=== PATIENT | female | born 1940 | race Caucasian/White ===

== ENCOUNTER → 2016-04-13 | Outpatient (CLI) | payer OTHER ==
[~2016-04-13] MED LIST: ACET-1311 PO; ASPI81TA28 PO; CALC500C70 PO; CLR10 PO; FLUO0.1S2 OPR; GLC/500 PO; IBUP-1459 PO; LEVO25TA5 PO; LISI40TA PO; MOME50SP5; MULT-188 PO; MULT-506 PO; MXZC25 PO; OMEG10007 PO; PRLSR20 PO; Refresh Eye Drops; SENNTAB23 PO; SIMV40TA2 PO; VALA500T60 PO
[2016-04-13 13:33] LABS: ALT/SGPT 30 U/L (12-78); AST/SGOT 18 U/L (15-37); BLOOD UREA NITROGEN 25 mg/dl (7-18); CALCIUM 9.3 mg/dl (8.5-10.1); CARBON DIOXIDE 28 mmol/L (21-32); CHLORIDE 103 mmol/L (98-107); GLUCOSE 115 mg/dl (70-99); POTASSIUM 4.3 mmol/L (3.5-5.1); SODIUM 140 mmol/L (136-145)
[2016-04-13 13:39] LABS: ESTIMATED AVERAGE GLUCOSE 123 mg/dl; HA1C FLAG Normal (Normal)
[2016-04-13 13:46] LABS: ALB/GLOB RATIO 1.4 (0.9-2); ALKALINE PHOSPHATASE 61 U/L (45-117); CHOLESTEROL 151 mg/dl (0-200); CHOLESTEROL/HDL RATIO 2.6; HDL CHOLESTEROL 59 mg/dl; LDL CHOLESTEROL CALCULATED 69 mg/dl; THYROID STIMULATING HORMONE 0.705 uIu/ml (0.300-4.500); TRIGLYCERIDES 116 mg/dl (0-150); VERY LOW DENSITY LIPOPROT CALC 23 mg/dl
--- NOTE | 2016-04-21 13:25 | CODING QUERY MEDICAL NECESSITY ---
SUPPORTING DIAGNOSIS NEEDED A supporting diagnosis is required for the test/procedure performed on this patient in order for us to be reimbursed by the patient's insurance. Please provide a supporting diagnosis for the following test/procedure listed below next to the test name along with your signature. *If there is no additional diagnosis for this patient that would support the following test/procedure please document that below next to the test/procedure. Test(s)/Procedure(s) that require a supporting diagnosis: * GLYCATED HEMOGLOBIN DIAGNOSIS: * DOS: 04/13/16 Provider Signature: Date: Thank you Eliana Carter Health Information Management Once completed, please kindly fax back to [phone] For questions please call [phone]
== END | disposition home or self-care (01) ==
LOC: C.LABBC 09:43
PROVIDERS: ATTEND Family Medicine
DX: I10 Essential (primary) hypertension (principal); E89.0 Postprocedural hypothyroidism; E78.00 Pure hypercholesterolemia, unspecified; R73.03 Prediabetes

== ENCOUNTER → 2016-05-18 | Outpatient (CLI) | payer OTHER ==
--- NOTE | 2016-05-18 13:45 | DIAGNOSTIC IMAGING REPORT ---
THYROID ULTRASOUND HISTORY: E01.0 Thyroid [id number] COMPARISON: Thyroid ultrasound 04/28/2015. FINDINGS: Right lobe: 7.5 x 4.2 x 4.3 cm. Diffusely heterogeneous. No definite nodules. Left lobe: 6.7 x 3.6 x 4.1 cm. Diffusely heterogeneous. No definite nodules. Isthmus: 1 cm thickness. Diffusely heterogeneous. No definite nodules. IMPRESSION: No significant change in the enlarged and diffusely heterogeneous thyroid gland. No definite nodules. Electronically signed by: Rock Bertrand M.D. 05/18/2016 1:44 PM Dictated Date/Time: 05/18/2016 1:42 PM
== END | disposition home or self-care (01) ==
LOC: C.ULTRBC 12:28
PROVIDERS: ATTEND Nurse Practitioner Adult Health
DX: E01.0 Iodine-deficiency related diffuse (endemic) goiter (principal)

== ENCOUNTER → 2016-09-17 | Outpatient (CLI) | payer OTHER ==
--- NOTE | 2016-09-20 12:30 | MAMMOGRAPHY REPORT ---
BILATERAL DIGITAL SCREENING MAMMOGRAM TOMOSYNTHESIS WITH CAD: 09/17/2016 CLINICAL HISTORY: Routine screening. Patient has no complaints. TECHNIQUE: Breast tomosynthesis in addition to standard 2D mammography was performed. Current study was also evaluated with a Computer Aided Detection (CAD) system. COMPARISON: Comparison is made to exams dated: 09/17/2015 mammogram, 09/13/2014 mammogram, 09/12/2013 ma mmogram, 09/01/2011 mammogram, 08/28/2010 mammogram, and 03/02/2010 mammogram - [facility] nter. BREAST COMPOSITION: There are scattered areas of fibroglandular density in both breasts. FINDINGS: No suspicious masses, calcifications, or areas of architectural distortion are noted in ei ther breast. There has been no significant interval change compared to prior exams. IMPRESSION: ACR BI-RADS CATEGORY 2: BENIGN There is no mammographic evidence of malignancy. A 1 year screening mammogram is recommended. The pa tient will receive written notification of the results. Approximately 10% of breast cancers are not detected with mammography. A negative mammographic report should not delay biopsy if a clinically suggestive mass is present. Rita Muhammad M.D. ah/:09/17/2016 13:47:56 Scaffold Builder: Brenda TRUONG(Cristal)(Tan), [facility] letter sent: Normal 1/2 BI-RADS Code: ACR BI-RADS Category 2: Benign
== END | disposition home or self-care (01) ==
LOC: C.MAMM 10:44
PROVIDERS: ATTEND Family Medicine
DX: Z12.31 Encounter for screening mammogram for malignant neoplasm of breast (principal)

== ENCOUNTER → 2016-10-23 | Outpatient (CLI) | payer OTHER | END | disposition home or self-care (01) | LOC: C.LABBC 12:05 | PROVIDERS: ATTEND Nurse Practitioner Family | DX: R19.7 Diarrhea, unspecified (principal) ==

== ENCOUNTER → 2016-12-02 | Outpatient (CLI) | payer OTHER | END | disposition home or self-care (01) | LOC: C.LABBC 10:56 | PROVIDERS: ATTEND Physician Assistant | DX: K21.9 Gastro-esophageal reflux disease without esophagitis (principal); R19.7 Diarrhea, unspecified ==

== ENCOUNTER → 2016-12-08 | Outpatient (CLI) | payer OTHER ==
[2016-12-08 13:21] LABS: HEMATOCRIT 41.7 % (37-47); MEAN CELL VOLUME 95.2 fL (80-100); MEAN CORPUSCULAR HEMOGLOBIN 32.6 pg (25-34); MEAN CORPUSCULAR HGB CONC 34.3 g/dl (32-36); PLATELET COUNT 235 K/uL (130-400); RED BLOOD COUNT 4.38 M/uL (4.2-5.4); WHITE BLOOD COUNT 7.28 K/uL (4.8-10.8)
[2016-12-08 13:45] LABS: ESTIMATED AVERAGE GLUCOSE 131 mg/dl; HA1C FLAG Normal (Normal)
[2016-12-08 14:09] LABS: ALT/SGPT 93 U/L (12-78); AST/SGOT 73 U/L (15-37); BLOOD UREA NITROGEN 24 mg/dl (7-18); BUN/CREATININE RATIO 22.7 (10-20); CALCIUM 9.4 mg/dl (8.5-10.1); CARBON DIOXIDE 26 mmol/L (21-32); CHLORIDE 103 mmol/L (98-107); CHOLESTEROL 122 mg/dl (0-200); CREATININE 1.04 mg/dl (0.60-1.20); GLUCOSE 115 mg/dl (70-99); POTASSIUM 3.8 mmol/L (3.5-5.1); SODIUM 138 mmol/L (136-145)
[2016-12-08 14:19] LABS: ALB/GLOB RATIO 1.3 (0.9-2); ALKALINE PHOSPHATASE 50 U/L (45-117); BASO ABS # 0.13 K/uL (0-0.2); BASOPHIL % 1.8 %; CHOLESTEROL/HDL RATIO 1.9; COMPLETE YES; EOSINOPHIL % 3.5 %; HDL CHOLESTEROL 64 mg/dl; LDL CHOLESTEROL CALCULATED 41 mg/dl; LYMPH ABS # 1.98 K/uL (1.2-3.4); LYMPHOCYTE % 27.2 %; NEUTROPHILS % 35.1 %; THYROID STIMULATING HORMONE 0.794 uIu/ml (0.300-4.500); TRIGLYCERIDES 84 mg/dl (0-150); VARIANT LYM ABS # 1.91 K/uL; VARIANT LYMPHOCYTE % 26.3 %; VERY LOW DENSITY LIPOPROT CALC 17 mg/dl
[2016-12-08 14:47] LABS: SMUDGE CELLS PRESENT
== END | disposition home or self-care (01) ==
LOC: C.LABBC 10:04
PROVIDERS: ATTEND Nurse Practitioner Adult Health
DX: R73.03 Prediabetes (principal); E78.00 Pure hypercholesterolemia, unspecified; E89.0 Postprocedural hypothyroidism

== ENCOUNTER → 2016-12-29 | Outpatient (CLI) | payer OTHER ==
[2016-12-29 13:51] LABS: ALT/SGPT 38 U/L (12-78); AST/SGOT 19 U/L (15-37); BLOOD UREA NITROGEN 27 mg/dl (7-18); BUN/CREATININE RATIO 28.3 (10-20); CALCIUM 9.2 mg/dl (8.5-10.1); CARBON DIOXIDE 28 mmol/L (21-32); CHLORIDE 104 mmol/L (98-107); CREATININE 0.96 mg/dl (0.60-1.20); GLUCOSE 106 mg/dl (70-99); POTASSIUM 3.9 mmol/L (3.5-5.1); SODIUM 140 mmol/L (136-145)
[2016-12-29 13:55] LABS: ALB/GLOB RATIO 1.2 (0.9-2); ALKALINE PHOSPHATASE 46 U/L (45-117)
== END | disposition home or self-care (01) ==
LOC: C.LABBC 09:15
PROVIDERS: ATTEND Physician Assistant
DX: R74.8 Abnormal levels of other serum enzymes (principal)

== ENCOUNTER → 2017-05-23 | Outpatient (CLI) | payer OTHER ==
--- NOTE | 2017-05-23 10:47 | DIAGNOSTIC IMAGING REPORT ---
THYROID ULTRASOUND HISTORY: Thyroid enlargement. COMPARISON: Thyroid ultrasound 05/18/2016. FINDINGS: Right lobe: 7.5 x 4.2 x 4.3 cm. The gland is diffusely heterogeneous. No definite nodules. Left lobe: 6.7 x 3.6 x 4.1 cm. The gland is diffusely heterogeneous. No definite nodules. Isthmus: 1.3 cm in thickness. No nodules. IMPRESSION: No significant change in the enlarged and diffusely heterogeneous thyroid gland. No definite nodules. Electronically signed by: Rock Bertrand M.D. 05/23/2017 10:46 AM Dictated Date/Time: 05/23/2017 10:44 AM
== END | disposition home or self-care (01) ==
LOC: C.ULTR 09:47
PROVIDERS: ATTEND Family Medicine
DX: E04.9 Nontoxic goiter, unspecified (principal)

== ENCOUNTER → 2017-06-13 | Outpatient (CLI) | payer OTHER ==
[2017-06-13 13:42] LABS: HEMOGLOBIN A1C 5.9 % (4.5-5.6)
[2017-06-13 14:53] LABS: ALBUMIN 3.7 gm/dl (3.4-5.0); ALT/SGPT 34 U/L (12-78); BLOOD UREA NITROGEN 22 mg/dl (7-18); CALCIUM 9.3 mg/dl (8.5-10.1); CARBON DIOXIDE 28 mmol/L (21-32); CREATININE 1.12 mg/dl (0.60-1.20); GLUCOSE 111 mg/dl (70-99); POTASSIUM 3.7 mmol/L (3.5-5.1); SODIUM 139 mmol/L (136-145)
[2017-06-13 15:05] LABS: AST/SGOT 20 U/L (15-37); CHOLESTEROL 144 mg/dl (0-200); LDL CHOLESTEROL CALCULATED 57 mg/dl
[2017-06-13 15:07] LABS: ALKALINE PHOSPHATASE 51 U/L (45-117)
== END | disposition home or self-care (01) ==
LOC: C.LABBC 09:49
PROVIDERS: ATTEND Family Medicine
DX: I10 Essential (primary) hypertension (principal); E89.0 Postprocedural hypothyroidism; E78.00 Pure hypercholesterolemia, unspecified; R73.03 Prediabetes

== ENCOUNTER → 2017-09-19 | Outpatient (CLI) | payer OTHER ==
--- NOTE | 2017-09-20 14:44 | MAMMOGRAPHY REPORT ---
BILATERAL DIGITAL SCREENING MAMMOGRAM TOMOSYNTHESIS WITH CAD: 09/19/2017 CLINICAL HISTORY: Routine screening. Patient has no complaints. TECHNIQUE: The study was acquired using full field digital technology and interpreted from soft copy. Breast tomosynthesis in addition to standard 2D mammography was performed. Current study was also ev aluated with a Computer Aided Detection (CAD) system. COMPARISON: Comparison is made to exams dated: 09/17/2016 mammogram, 09/17/2015 mammogram, 09/13/2014 migdalia mogram, 09/12/2013 mammogram, 09/08/2012 mammogram, and 09/01/2011 mammogram - [facility] ter. BREAST COMPOSITION: There are scattered areas of fibroglandular density in both breasts. FINDINGS: The parenchymal pattern is unchanged. There are benign calcifications in both breasts. No developing mass, architectural distortion or cluster of suspicious microcalcifications is seen in either breast . IMPRESSION: ACR BI-RADS CATEGORY 2: BENIGN There is no mammographic evidence of malignancy. A 1 year screening mammogram is recommended.( 019) The patient will receive written notification of the results. Some breast cancers are not detected with mammography. A negative mammographic report should not solomon y biopsy if a clinically suggestive mass is present. Meeta Rasmussen M.D. ay/:09/19/2017 17:42:23 Retail Sales Associate Bilingual: RT Vincent(R)(M), [facility] letter sent: Normal 1/2 BI-RADS Code: ACR BI-RADS Category 2: Benign
== END | disposition home or self-care (01) ==
LOC: C.MAMM 11:04
PROVIDERS: ATTEND Family Medicine
DX: Z12.31 Encounter for screening mammogram for malignant neoplasm of breast (principal)

== ENCOUNTER 2018-06-30 11:29 | Inpatient (IN) ==
--- NOTE | 2018-05-30 14:52 | PAT Medication Instructions ---
Medication Instructions Date of Service May 30, 2018 Home Medications Artificial Tears (PF) 1 drp OPHTHALMIC (EYE) HS PRN Ocuvite 1 cap PO QPM Probiotic 1 cap PO QAM aspirin 81 mg PO HS calcium carbonate [Tums] 200 mg PO UD PRN calcium carbonate-vitamin D3 1 tab PO DAILY fluorometholone acetate 1 drp OPR QAM fluticasone propionate 1 spray INTRANASAL DAILY levothyroxine 25 mcg PO UD lisinopril 40 mg PO QAM metformin 500 mg PO BID multivitamin 1 tab PO DAILY omega 8-loq-jro-fish oil [Fish Oil] 1 cap PO BID simvastatin 40 mg PO HS triamterene-hydrochlorothiazid 1 cap PO QAM valacyclovir 500 mg PO QAM meloxicam 15 mg PO QAM ASK your surgeon for instructions meloxicam 15 mg PO QAM STOP taking 2 weeks before surgery (or as soon as possible if surgery is within 2 weeks) Ocuvite 1 cap PO QPM omega 0-qdz-erp-fish oil [Fish Oil] 1 cap PO BID DO NOT take the morning of surgery Probiotic 1 cap PO QAM calcium carbonate [Tums] 200 mg PO UD PRN calcium carbonate-vitamin D3 1 tab PO DAILY lisinopril 40 mg PO QAM metformin 500 mg PO BID multivitamin 1 tab PO DAILY triamterene-hydrochlorothiazid 1 cap PO QAM Take morning of surgery With a small sip of water, OTHERWISE NOTHING TO EAT OR DRINK AFTER MIDNIGHT: fluorometholone acetate 1 drp OPR QAM fluticasone propionate 1 spray INTRANASAL DAILY levothyroxine 25 mcg PO UD (M, W, F) valacyclovir 500 mg PO QAM Take evening before surgery Artificial Tears (PF) 1 drp OPHTHALMIC (EYE) HS PRN (if needed) aspirin 81 mg PO HS calcium carbonate [Tums] 200 mg PO UD PRN (if needed) metformin 500 mg PO BID simvastatin 40 mg PO HS Other Notes If you have any questions please call us at [phone] or [phone] or [phone] or [phone]
--- NOTE | 2018-05-31 09:51 | Anesthesiology Consultation ---
Date of Service May 31, 2018 Assessment & Plan (1) Encounter for pre-operative examination: -Patient has known history of thyroid goiter causing mediastinal widening with mild mass effect along the proximal trachea. This has caused difficult intubations in the past, but she has always been successfully intubated in the past using glidescope. Discussed with Dr. Cerda, who feels that patient is ok to proceed given that imaging has not changed. Chart Review Chart Review: Acceptable Risk for Surgery and Patient seen in Pre Admission Testing Consults Requested none Teaching & Discussion Pre-Anesthesia Teaching/Discussion Notes: Instructed NPO after midnight before surgery, except medications with 15 cc of water. Medication instructions provided according to the PAT guidelines. History Surgery Operation Date: 06/30/18 13:00 Proposed Procedures p Right Anterior Total Hip Replacement - Salo Cartagena DO Height/Weight Height: 5 ft 1 in Weight: 90.4 kg Allergies Allergy/AdvReac Type Severity Reaction Status Date / Time No Known Allergies Allergy Verified 05/24/18 10:22 Medications Home Medications Medication Instructions Recorded Confirmed Last Taken Artificial Tears (PF) 1 drp OPHTHALMIC (EYE) HS PRN 11/24/17 05/24/18 12/07/17 Ocuvite 1 cap PO QPM 11/24/17 05/24/18 12/07/17 Probiotic 1 cap PO QAM 11/24/17 05/24/18 12/07/17 aspirin 81 mg PO HS 11/24/17 05/24/18 12/07/17 calcium carbonate [Tums] 200 mg PO UD PRN 11/24/17 05/24/18 12/07/17 calcium carbonate-vitamin D3 1 tab PO DAILY 11/24/17 05/24/18 12/07/17 [Calcium 600 + D(3)] fluorometholone acetate 1 drp OPR QAM 11/24/17 05/24/18 12/07/17 fluticasone propionate 1 spray INTRANASAL DAILY 11/24/17 05/24/18 12/07/17 levothyroxine 25 mcg PO UD 11/24/17 05/24/18 12/07/17 lisinopril 40 mg PO QAM 11/24/17 05/24/18 12/07/17 metformin 500 mg PO BID 10/11/18 04/10/19 10/23/18 multivitamin 1 tab PO DAILY 11/24/17 05/24/18 12/07/17 omega 7-owr-kfb-fish oil [Fish Oil] 1 cap PO BID 11/24/17 05/24/18 12/07/17 simvastatin 40 mg PO HS 11/24/17 05/24/18 12/07/17 triamterene-hydrochlorothiazid 1 cap PO QAM 11/24/17 05/24/18 12/08/17 05:20 valacyclovir 500 mg PO QAM 11/24/17 05/24/18 12/07/17 meloxicam 15 mg PO QAM 05/24/18 05/24/18 Unknown Past Medical History Medical History Arrhythmia MANY YEARS AGO (NO CURRENT PROBLEM) - LIVED IN [place], COULD NOT PROVIDE SPECIFICS - DOES NOT FOLLOW W/ CARDIO GERD (gastroesophageal reflux disease) Hyperlipidemia Hypertension Hypothyroidism Osteoarthritis Pre-diabetes Shingles H/O - RT EYE Past Surgical History Surgical History H/O total shoulder replacement RT 01/2016 - Glidescope #3, ETT #7.0, Oral HiLo, Good view with glidescope, Attempt x2 History of bilateral tubal ligation History of cataract surgery RT History of cholecystectomy 09/22/15 - Glidescope #4, ETT #7.5, HiLo Oral, Grade 2 View History of colonoscopy History of tonsillectomy History of tooth extraction Status post trigger finger release Right 4th Finger Past Anesthesia History No Hx of Anesthesia Complications (Was told she needed to have a smaller ETT) and No Family Hx of Anesthesia Complications History of PONV No Motion Sickness Screening History of Motion Sickness: Yes (When sailing, not in car) Social History Smoking Status: Never smoker Do You Dip or Chew Tobacco: No Hx Alcohol Use: No Hx Substance Use: No substance use type: does not use Exercise / Class Metabolic Activity II 4-5 Yardwork/Stairs/Walk up hill (Currently limited due to hip pain. Was walking 3 miles a day prior to hip pain. Can climb a FOS if she has to, but doesn't very often. Denies CP or SOB. ) Review of Systems Patient denies chest pain, shortness of breath, dyspnea on exertion, cough, wheezing, palpitations. +Joint Pain (Hip, right ankle, right 4th finger) +Acid Reflux (occasional, relieved with TUMS) Physical Exam Vital Signs BP: 135/80 P: 60 R: 16 T: 97.7 SPO2: 97% on RA Constitutional + obese ENMT Mouth: + dental restorations Thyromental Distance: < 3.5 Finger Breadths (2) Mallampati Class: III Neck normal visual inspection, + shortened thyromental distance, + short neck and + thick neck; neck extension not limited Respiratory normal respiratory effort Auscultation: lungs clear to auscultation bilaterally Cardiovascular Rate/Rhythm: regular rate and regular rhythm Heart Sounds: no murmur Vessels: no carotid bruit Neurologic moves all extremities Psychiatric Orientation: alert and oriented x 3 Testing Electrocardiogram Date: 05/31/18 Findings: + NSR @ (62) and + no change from (09/10/15) Chest X-Ray Date: 05/31/18 Findings: + NAD FINDINGS: Persistent superior mediastinal widening likely due to the patient's known thyroid goiter. This remains unchanged. This results in mild mass effect along the proximal trachea, unchanged. The heart is normal in size. The lungs are clear. No pleural effusions. No pneumothorax. There is a right shoulder prosthesis. Prior cholecystectomy. IMPRESSION: 1. No significant change compared to the prior study. No acute process. 2. Persistent superior mediastinal widening likely due to the patient's known thyroid goiter. This remains unchanged and results in mild mass effect along the proximal trachea. Laboratory Results 05/31/18 10:30 05/31/18 10:30 Blood Type A Positive 05/31/18 10:30 Antibody Screen NEGATIVE 05/31/18 10:30 PT 9.8 Seconds (9.0-12.0) 05/31/18 10:30 INR 1.0 (0.9-1.1) 05/31/18 10:30 APTT 22.1 Seconds (21.0-31.0) 05/31/18 10:30
--- NOTE | 2018-05-31 11:04 | XRay Report ---
XR chest Pre-admission PA/Lat HISTORY: Preop. COMPARISON: Chest 07/17/2015. FINDINGS: Persistent superior mediastinal widening likely due to the patient's known thyroid goiter. This remains unchanged. This results in mild mass effect along the proximal trachea, unchanged. The h eart is normal in size. The lungs are clear. No pleural effusions. No pneumothorax. There is a right shoulder prosthesis. Prior cholecystectomy. IMPRESSION: 1. No significant change compared to the prior study. No acute process. 2. Persistent superior mediastinal widening likely due to the patient's known thyroid goiter. This r emains unchanged and results in mild mass effect along the proximal trachea. Electronically signed by: Rock Bertrand M.D. 05/31/2018 11:03 AM
[2018-05-31 11:59] LABS: Basophils # (auto) 0.04 K/uL (0-0.2); Basophils % (auto) 0.6 %; Eosinophils # (auto) 0.17 K/uL (0-0.5); Eosinophils % (auto) 2.4 %; Hematocrit (blood only) 41.6 % (37-47); Hemoglobin 14.4 g/dL (12.0-16.0); Immature Granulocytes # (auto) 0.01 K/uL (0.00-0.02); Immature Granulocytes % (auto) 0.1 %; Lymphocytes # (auto) 3.25 K/uL (1.2-3.4); Lymphocytes % (auto) 46.4 %; Mean Corpuscular Hgb Conc 34.6 g/dL (32-36); Mean Corpuscular Volume 96.3 fL (80-100); Mean Platelet Volume 10.5 fL (7.4-10.4); Monocytes # (auto) 0.53 K/uL (0.11-0.59); Monocytes % (auto) 7.6 %; Neutrophils % (auto) 42.9 %; Platelet Count 209 K/uL (130-400); RDW Coefficient of Variation 12.9 % (11.5-14.5); RDW Standard Deviation 44.9 fL (36.4-46.3); Red Blood Count 4.32 M/uL (4.2-5.4)
[2018-05-31 12:07] LABS: BUN Creatinine Ratio 29.2 (10-20); Calcium 10.1 mg/dl (8.5-10.1); Creatinine Clr Calc Pharmacy 44.8 ml/min; Est GFR (African American) 58.2; Est GFR (Non-African American) 50.3; Potassium 4.5 mmol/L (3.5-5.1)
[2018-05-31 12:24] LABS: Partial Thromboplastin Ratio 0.8; Partial Thromboplastin Time 22.1 Seconds (21.0-31.0); Prothrombin Time 9.8 Seconds (9.0-12.0)
--- NOTE | 2018-06-27 15:33 | History & Physical Report ---
Date of Service June 27, 2018 Assessment & Plan (1) Osteoarthritis of right hip: We will proceed with a right anterior total hip arthroplasty. Postoperatively she will be started on aspirin for DVT prophylaxis. She will be kept overnight in the hospital for postoperative medical management. She plans to use energy physical therapy upon discharge. Present on Admission?: Yes History of Present Illness Chief Complaint: Primary osteoarthritis of the right hip Primary Care Provider: Georgette Riley MD Becky is a pleasant 78-year-old female who is been dealing with chronic increasing right hip and groin pain. X-ray's and clinical examination have been diagnostic for primary osteoarthritis of the right hip. We have tried to intra- articular hip injections which initially have helped but did not last long. She has had to use a wheelchair recently had a flower show because of her hip pain. After failing extensive conservative treatment, she has elected proceed with a right anterior total hip arthroplasty. Allergies Allergy/AdvReac Type Severity Reaction Status Date / Time No Known Allergies Allergy Verified 05/24/18 10:22 Home Medications Home Medications Medication Instructions Recorded Confirmed Type Artificial Tears (PF) 1 drp OPHTHALMIC (EYE) HS PRN 11/24/17 05/24/18 History Ocuvite 1 cap PO QPM 11/24/17 05/24/18 History Probiotic 1 cap PO QAM 11/24/17 05/24/18 History aspirin 81 mg PO HS 11/24/17 05/24/18 History calcium carbonate [Tums] 200 mg PO UD PRN 11/24/17 05/24/18 History calcium carbonate-vitamin D3 1 tab PO DAILY 11/24/17 05/24/18 History [Calcium 600 + D(3)] fluorometholone acetate 1 drp OPR QAM 11/24/17 05/24/18 History fluticasone propionate 1 spray INTRANASAL DAILY 11/24/17 05/24/18 History levothyroxine 25 mcg PO UD 11/24/17 05/24/18 History lisinopril 40 mg PO QAM 11/24/17 05/24/18 History metformin 500 mg PO BID 11/24/17 05/24/18 History multivitamin 1 tab PO DAILY 11/24/17 05/24/18 History omega 2-dpi-ntj-fish oil [Fish Oil] 1 cap PO BID 11/24/17 05/24/18 History simvastatin 40 mg PO HS 11/24/17 05/24/18 History triamterene-hydrochlorothiazid 1 cap PO QAM 11/24/17 05/24/18 History valacyclovir 500 mg PO QAM 11/24/17 05/24/18 History meloxicam 15 mg PO QAM 05/24/18 05/24/18 History Past Med/Surg History Medical History Arrhythmia MANY YEARS AGO (NO CURRENT PROBLEM) - LIVED IN [place], COULD NOT PROVIDE SPECIFICS - DOES NOT FOLLOW W/ CARDIO GERD (gastroesophageal reflux disease) Hyperlipidemia Hypertension Hypothyroidism Osteoarthritis Pre-diabetes Shingles H/O - RT EYE Surgical History H/O total shoulder replacement RT 01/2016 - Glidescope #3, ETT #7.0, Oral HiLo, Good view with glidescope, Attempt x2 History of bilateral tubal ligation History of cataract surgery RT History of cholecystectomy 09/22/15 - Glidescope #4, ETT #7.5, HiLo Oral, Grade 2 View History of colonoscopy History of tonsillectomy History of tooth extraction Status post trigger finger release Right 4th Finger Social History Preferred Language: Togolese Communication Ability: Effective Beliefs That Will Affect Care: None Current Living Situation: Spouse Feels Safe at Home: Yes Smoking Status: Never smoker Second Hand Exposure: No Hx Alcohol Use: No Hx Substance Use: No Review of Systems All systems reviewed & are unremarkable except as noted in HPI & below Physical Exam Constitutional: WD/WN, vitals as above Eyes: PERRL, conjunctivae normal, anicteric sclerae ENMT: external ear and nose normal, oropharynx normal Neck: trachea midline, no thyromegaly Respiratory: normal respiratory effort Cardiovascular: RRR, no murmur, no edema Gastrointestinal (Abdomen): normal bowel sounds, soft, nontender, no hepatosplenomegaly Musculoskeletal: Physical examination of the right hip reveals decreased range of motion with flexion, internal and external rotation. There is significant groin pain with forced internal rotation of the hip his leg lengths are essentially equal. Psychiatric: A+Ox3, euthymic affect Results & Data Diagnostic Findings Radiographs of the right hip and pelvis demonstrate advanced osteoarthritis with joint space narrowing osteophyte formation and vazd-ko-dyjk articulation.
[~2018-06-30 11:29] MED LIST changes: -ACET-1311 PO; +ACETAMINOPHEN 500 MG TAB PO SCH; -ASPI81TA28 PO; +ATROPINE SULFATE 0.1 MG/ML 10ML SYR IV PRN; +BUPIVACAINE 0.5 % 5 MG/1 ML PF 10ML VIAL ONE; -CALC500C70 PO; +CEFAZOLIN 2000MG 2,000 MG/15 ML SYR IV SCH; -CLR10 PO; +FAMOTIDINE 20 MG TAB PO SCH; -FLUO0.1S2 OPR; +GABAPENTIN 300 MG PO SCH; -GLC/500 PO; +HYDROmorphone INJ 1 MG/ML SYRINGE IV PRN; -IBUP-1459 PO; -LEVO25TA5 PO; -LISI40TA PO; +LR 500ML BOLUS, THEN 15ML/HR IV SCH; +LR 60ML/HR IV SCH; +MIDAZOLAM HCL 1 MG/ML 2ML VIAL ONE; -MOME50SP5; -MULT-188 PO; -MULT-506 PO; -MXZC25 PO; -OMEG10007 PO; +ONDANSETRON INJ 2 MG/ML 2 ML VIAL IV PRN; +PHENYLEPHRINE 100MCG/ML 5ML SYR IV PRN; -PRLSR20 PO; +ROPIVACAINE 0.5% HCL/PF 150 MG, BUPIVACAINE 0.5% MPF 30 ML, EPINEPHrine 30MG/30ML (OR U... INFIL SCH; -Refresh Eye Drops; -SENNTAB23 PO; -SIMV40TA2 PO; +TRANEXAMIC ACID 1,000 MG **IV Intra-op IV SCH; +TRANEXAMIC ACID 1,000 MG **IV Pre-op IV SCH; -VALA500T60 PO; +ePHEDrine sulfate 50 MG/ML AMP IV PRN; +fentaNYL citrate 100 MCG/2 ML VIAL IV PRN; +fentaNYL citrate 100 MCG/2 ML VIAL ONE
--- NOTE | 2018-06-30 11:37 | History & Physical Bridge Note ---
Date of Service June 30, 2018 History & Physical Bridge Note I have examined the patient, reviewed the History & Physical and in the interval since the performance of the History & Physical I have noted the following changes of clinical significance: no changes noted
[2018-06-30] MEDS ORDERED: ORTHO JOINT ANESTHETIC ONE (12:09)
[2018-06-30] MEDS ORDERED: POVIDONE-IODINE OP SOLN 30 ML BTL ONE (12:09)
[2018-06-30] MEDS ORDERED: LIDOCAINE HCL 2% 2 ML VIAL/AMP(20MG/ML) INFIL ONE (13:22)
[2018-06-30] MEDS ORDERED: PROPOFOL IV EMULSION 10 MG/ML 20 ML VIAL IV ONE ×3 (13:22→14:25)
[2018-06-30] MEDS ORDERED: ONDANSETRON INJ 2 MG/ML 2 ML VIAL ONE (13:22)
[2018-06-30] MEDS ORDERED: ePHEDrine sulfate 50 MG/ML AMP ONE (13:52)
[2018-06-30] MEDS ORDERED: MIDAZOLAM HCL 1 MG/ML 2ML VIAL ONE (14:00)
--- NOTE | 2018-06-30 14:57 | Fluoroscopy Report ---
FL hip RT 1V CLINICAL HISTORY: RT ANTERIOR HIP ARTHOPLASTY COMPARISON STUDY: 03/29/2018 FLUOROSCOPY TIME: 37 seconds. NUMBER OF FLUOROSCOPIC IMAGES: 2 FINDINGS: 2 intraoperative fluoroscopic spot images are provided for interpretation. Image #1 demonst rates surgical amputation of the femoral head and acetabular. Image #2 demonstrates a total right hip arthroplasty. There is no dislocation. IMPRESSION: Intraoperative fluoroscopic spot films obtained during a total right hip arthroplasty Electronically signed by: Michael Clements M.D. 06/30/2018 2:56 PM
--- NOTE | 2018-06-30 15:02 | Operative Report ---
Post Operative Report Pre & Post Diagnosis Operation Date: 06/30/18 13:40 Pre-Op Diagnosis: Right Hip Degenerative Joint Disease Post-Op Diagnosis: Right Hip Degenerative Joint Disease Procedure Operation Date: 06/30/18 13:40 Actual Procedures p Right Anterior Total Hip Replacement(Right) - Salo Cartagena DO Surgeon Salo Cartagena DO Soil Sort Worker Salo Hsu PAC Estimated Blood Loss 250 Findings Consistent with Post-Op Diagnosis Specimens Right femoral head Complications none Disposition Disposition: Recovery Room Indications Becky is a pleasant 78-year-old female who presented my office with complaints of chronic increasing right hip and groin pain. X-rays and clinical examination were diagnostic for primary osteoarthritis of the right hip. After failing conservative treatment she elected to proceed with a right anterior total hip arthroplasty. Description of Procedure Implants used Biomet Taperloc total hip arthroplasty system with a size 7 standard offset Taperloc stem, a 46 mm G7 cup with a 25mm screw, an E1 polyethylene liner, a 32 mm ceramic head with a -3 neck. Patient arrived at the hospital for the above procedure. They were seen in the preoperative holding area and the operative extremity was identified and signed. They were given a spinal anesthetic. They were given a preoperative antibiotic and TXA. They were taken back To the operating room and laid on the table in the supine position. The leg was brought out through a Puristst leg positioner. The hip was then prepped and draped in sterile fashion. A timeout was done and the patient in upper extremities properly identified. An anterior approach was used. Dissection was taken down through the fascia and the tensor muscle belly was retracted laterally and the rectus was retracted medially. The circumflex vessels were identified and ligated. The capsule was then incised and tagged for later repair. The femoral neck was then cut and the femoral head was removed. The acetabulum was exposed. Time was spent doing a complete circumferential labral release. Sequential reaming of the acetabulum up to a size 45 reamer was done. Final reamings were done under fluoroscopy to ensure appropriate version. A Biomet 46 mm G7 cup was then impacted into place. A single 25 mm screw was placed. The E1 polyethylene liner was then snapped into place. Surrounding soft tissues were then injected with 100 cc of an orthopedic pain control cocktail. The proximal femur was then exposed. Sequential broaching up to a size 7 broach was done. Off that broach a size 32 head with a -3 neck was trialed. The hip was reduced and fluoroscopic images showed anatomic alignment of the implants in acceptable length. The broach was removed. The final size 7 standard offset Taperloc stem was then impacted into place. A ceramic 32 mm head with a -3 neck was then impacted into place in the hip was reduced. Final fluoroscopic images showed anatomic reduction of the hip. The capsule was then closed with #1 Vicryl suture. A dilute betadyne lavage was then done for 3 minutes. The joint was then irrigated with normal saline solution. The fascia was closed with #1 PDS suture. Skin was closed with 2-0 Vicryl, helen, and a Melany VAC dressing. The patient was then transferred to a hospital bed and taken to the post anesthesia care unit in stable condition. They tolerated the procedure well. I attest to the content of the Intraoperative Record and any orders documented therein. Any exceptions are noted below.
[2018-06-30] MEDS ORDERED: fentaNYL citrate 100 MCG/2 ML VIAL ONE (15:06)
--- NOTE | 2018-06-30 15:48 | XRay Report ---
XR hip 1V RT w pelvis CLINICAL HISTORY: 78 years-old Female presenting with IN PACU - A/P PELVIS and LATERAL HIP . TECHNIQUE: Single frontal view of the pelvis and crosstable lateral view of the right hip were obtain ed. COMPARISON: 2018. FINDINGS: There has been interval total right hip arthroplasty. Expected skin helen in place. Soft tissue emp hysema also expected. No periprosthetic fracture or malalignment. Remainder of the bony pelvis is int act. IMPRESSION: Expected postsurgical appearance status post total right hip arthroplasty. Electronically signed by: Garcia Field M.D. 06/30/2018 3:46 PM
--- NOTE | 2018-06-30 16:10 | Anesthesiology Progress Note ---
Date of Service June 30, 2018 Anesthesia Post Procedure Vital Signs Vital Signs: Temp Pulse Pulse Pulse Resp BP BP 06/30/18 15:55 59 L 16 06/30/18 15:51 61 14 123/66 06/30/18 15:50 65 19 06/30/18 15:46 61 13 111/61 06/30/18 15:45 61 14 06/30/18 15:41 63 12 121/89 06/30/18 15:40 64 23 06/30/18 15:36 61 13 123/64 06/30/18 15:35 62 14 06/30/18 15:31 63 14 126/62 06/30/18 15:30 63 14 06/30/18 15:26 65 18 121/75 06/30/18 15:25 68 15 06/30/18 15:21 36.5 C 74 70 14 118/70 118/70 06/30/18 12:05 36.6 C 75 20 161/89 H Pulse Ox 06/30/18 15:55 99 06/30/18 15:51 100 06/30/18 15:50 100 06/30/18 15:46 99 06/30/18 15:45 97 06/30/18 15:41 100 06/30/18 15:40 99 06/30/18 15:36 97 06/30/18 15:35 95 06/30/18 15:31 94 06/30/18 15:30 93 06/30/18 15:26 98 06/30/18 15:25 98 06/30/18 15:21 95 06/30/18 12:05 96 Pain Intensity Right Hip: Pain Intensity: 0 Transfer of Care Handoff Completed per policy Notes Mental Status: alert / awake / arousable Patient Amnestic to Procedure: Yes Nausea / Vomiting: adequately controlled Pain: adequately controlled Airway Patency, RR, SpO2: stable & adequate BP & HR: stable & adequate Neuraxial Anesthesia: was administered and sensory block is resolving Anesthetic Complications: no major complications apparent Notes: Awake, doing well, VSS
[2018-06-30] MEDS ORDERED: TRAMADOL HCL 50 MG TABLET PO PRN (16:39)
[2018-06-30] MEDS ORDERED: BISACODYL 10 MG SUPP PR PRN (16:39)
[2018-06-30] MEDS ORDERED: NALOXONE HCL 0.4 MG/1 ML VIAL/CARP IV PRN (16:39)
[2018-06-30] MEDS ORDERED: HYDROmorphone INJ 0.5 MG/0.5 ML SYR IV PRN (16:39)
[2018-06-30] MEDS ORDERED: METOCLOPRAMIDE HCL INJ 5 MG/ML 2 ML VIAL IV PRN (16:39)
[2018-06-30] MEDS ORDERED: ONDANSETRON INJ 2 MG/ML 2 ML VIAL IV PRN (16:39)
[2018-06-30] MEDS ORDERED: MAGNESIUM HYDROXIDE SUSP 30 ML UDC PO PRN (16:39)
[2018-06-30] MEDS ORDERED: PHARMACY GLYCEMIC MGMT CONSULT PRN (16:55)
[2018-06-30] MEDS ORDERED: SODIUM CHLORIDE 0.9% 1000ML 1,000 ML IV SCH (17:00)
[2018-06-30] MEDS ORDERED: CARBOHYDRATES FOR HYPOGLYCEMIA PO PRN (17:15)
[2018-06-30] MEDS ORDERED: GLUCOSE 10 TABS/TUBE PO PRN (17:15)
[2018-06-30] MEDS ORDERED: GLUCOSE 40% GEL 15 GM TUBE PO PRN (17:15)
[2018-06-30] MEDS ORDERED: DEXTROSE 50% 50 ML SYRINGE IV PRN (17:15)
[2018-06-30] MEDS ORDERED: GLUCAGON FOR INJ 1 MG VIAL IM PRN (17:15)
[2018-06-30] MEDS: KETOROLAC TROMETHAMINE 15 MG/ML VIAL IV SCH (17:33)
[2018-06-30] MEDS: INSULIN ASPART 100 UNITS/ML 3 ML PEN SC SCH ×2 (18:27→20:49)
[2018-06-30] MEDS: ASPIRIN 81 MG ECTAB PO SCH (20:46)
[2018-06-30] MEDS: DOCUSATE SODIUM 100 MG CAP PO SCH (20:46)
[2018-06-30] MEDS ORDERED: SIMVASTATIN 40 MG TAB PO SCH (21:00)
[2018-06-30] MEDS ORDERED: SENNA 8.6 MG TAB PO SCH (21:00)
[2018-06-30] MEDS ORDERED: CEROVITE ADV FORMULA TAB PO SCH (21:00)
[2018-06-30] MEDS: ACETAMINOPHEN 500 MG TAB PO SCH (21:09)
[2018-06-30] MEDS: CEFAZOLIN 2000MG 2,000 MG/15 ML SYR IV SCH (21:09)
[2018-07-01] MEDS: KETOROLAC TROMETHAMINE 15 MG/ML VIAL IV SCH ×3 (00:09→11:01)
[2018-07-01] MEDS: CEFAZOLIN 2000MG 2,000 MG/15 ML SYR IV SCH (05:35)
[2018-07-01] MEDS: ACETAMINOPHEN 500 MG TAB PO SCH (05:37)
[2018-07-01 07:02] LABS: Basophils # (auto) 0.01 K/uL (0-0.2); Basophils % (auto) 0.1 %; Eosinophils # (auto) 0.01 K/uL (0-0.5); Eosinophils % (auto) 0.1 %; Hematocrit (blood only) 33.7 % (37-47); Hemoglobin 11.7 g/dL (12.0-16.0); Immature Granulocytes # (auto) 0.03 K/uL (0.00-0.02); Immature Granulocytes % (auto) 0.3 %; Lymphocytes # (auto) 1.92 K/uL (1.2-3.4); Lymphocytes % (auto) 18.5 %; Mean Corpuscular Hgb Conc 34.7 g/dL (32-36); Mean Corpuscular Volume 95.7 fL (80-100); Mean Platelet Volume 9.8 fL (7.4-10.4); Monocytes # (auto) 0.77 K/uL (0.11-0.59); Monocytes % (auto) 7.4 %; Neutrophils # (auto) 7.64 K/uL (1.4-6.5); Neutrophils % (auto) 73.6 %; Platelet Count 153 K/uL (130-400); RDW Coefficient of Variation 12.8 % (11.5-14.5); Red Blood Count 3.52 M/uL (4.2-5.4); White Blood Count 10.38 K/uL (4.8-10.8)
--- NOTE | 2018-07-01 07:24 | Orthopedic Progress Note ---
Date of Service July 01, 2018 Assessment & Plan (1) Osteoarthritis of right hip: Overall she is doing very well. She is not having much pain in the right hip. She is on aspirin for DVT prophylaxis. She will be seen by physical therapy this morning for range of motion exercises. She is orthopedically stable for discharge to home later today. Her and her daughter are able to help take care of her. She will have energy physical therapy coming to the house. She will follow-up with orthopedics in 2 weeks. Present on Admission?: Yes Ree Pena was seen and examined at bedside this morning. Overall she is doing very well. She does not have any pain in her right hip. She is been up and ambulating around her room. She has no complaints. Physical Exam Musculoskeletal: On physical examination of the right hip, the Melany VAC dressing is to suction. Her leg lengths are equal. She is active dorsiflexion and plantarflexion of her right ankle. Sensations intact. Results & Data Vital Signs (Past 12 Hours) Vital Signs Temp Pulse Resp BP BP Pulse Ox 07/01/18 06:53 36.7 C 61 18 106/69 96 07/01/18 04:07 36.7 C 64 14 110/65 95 06/30/18 23:03 36.9 C 66 18 96/61 L 95 06/30/18 22:52 36.7 C 62 14 99/64 L 95 06/30/18 20:30 36.6 C 67 16 117/76 98 Laboratory Results H & H 05/31/18 07/01/18 Range/Units 10:30 06:45 Hgb 14.4 11.7 L (12.0-16.0) g/dL Hct 41.6 33.7 L (37-47) % Coagulation 05/31/18 Range/Units 10:30 INR 1.0 (0.9-1.1) Diagnostic Findings Postoperative x-rays of the right hip show the prosthesis to be in anatomic alignment without any evidence of fracture, dislocation, or loosening.
--- NOTE | 2018-07-01 07:25 | Discharge Summary ---
Date of Service July 01, 2018 Admission HPI Per Admitting Provider Becky is a pleasant 78-year-old female who is been dealing with chronic increasing right hip and groin pain. X-ray's and clinical examination have been diagnostic for primary osteoarthritis of the right hip. We have tried to intra- articular hip injections which initially have helped but did not last long. She has had to use a wheelchair recently had a flower show because of her hip pain. After failing extensive conservative treatment, she has elected proceed with a right anterior total hip arthroplasty. Specialty Data Orthopedic H & H 05/31/18 07/01/18 Range/Units 10:30 06:45 Hgb 14.4 11.7 L (12.0-16.0) g/dL Hct 41.6 33.7 L (37-47) % Coagulation 05/31/18 Range/Units 10:30 INR 1.0 (0.9-1.1) Discharge Data Consultations 07/01/18 08:00 Consult Case Management - Discharge Planning Routine Procedures Performed Operation Date: 06/30/18 13:40 Actual Procedures p Right Anterior Total Hip Replacement(Right) - Salo Cartagena DO Hospital Course (1) Osteoarthritis of right hip: On June 30, 2018 Becky arrived at [facility] and underwent a right anterior total hip arthroplasty without complication. She had a spinal anesthetic. Postoperatively she was started on aspirin for DVT prophylaxis and discharged to general orthopedic floors. Her hospital course was uneventful. On postop day #1 her H&H was stable and her pain was well controlled. She was able to participate well with physical therapy. She was then discharged home. She will get energy physical therapy at home. She will follow-up with orthopedics in 2 weeks. Discharge Instructions Home Medications Medication Instructions Recorded Confirmed Artificial Tears (PF) 1 drp OPHTHALMIC (EYE) HS PRN 11/24/17 05/24/18 Ocuvite 1 cap PO QPM 11/24/17 05/24/18 Probiotic 1 cap PO QAM 11/24/17 05/24/18 aspirin 81 mg PO HS 11/24/17 05/24/18 calcium carbonate [Tums] 200 mg PO UD PRN 11/24/17 05/24/18 calcium carbonate-vitamin D3 1 tab PO DAILY 11/24/17 05/24/18 [Calcium 600 + D(3)] fluorometholone acetate 1 drp OPR QAM 11/24/17 05/24/18 fluticasone propionate 1 spray INTRANASAL DAILY 11/24/17 05/24/18 levothyroxine 25 mcg PO UD 11/24/17 05/24/18 lisinopril 40 mg PO QAM 11/24/17 05/24/18 metformin 500 mg PO BID 11/24/17 05/24/18 multivitamin 1 tab PO DAILY 11/24/17 05/24/18 omega 4-whj-ypy-fish oil [Fish Oil] 1 cap PO BID 11/24/17 05/24/18 simvastatin 40 mg PO HS 11/24/17 05/24/18 triamterene-hydrochlorothiazid 1 cap PO QAM 11/24/17 05/24/18 valacyclovir 500 mg PO QAM 11/24/17 05/24/18 meloxicam 15 mg PO QAM 05/24/18 05/24/18 Previous Rx's Medication Instructions Recorded aspirin [Ecotrin Low Strength] 81 mg PO BID #84 tab 07/01/18 tramadol 50 - 100 mg PO Q4H PRN #40 tab 07/01/18
[2018-07-01 07:35] LABS: Estimated Average Glucose 126 mg/dl
[2018-07-01 07:40] LABS: Calcium 8.8 mg/dl (8.5-10.1); Creatinine Clr Calc Pharmacy 37.4 ml/min; Est GFR (African American) 46.8; Est GFR (Non-African American) 40.4
--- NOTE | 2018-07-01 08:24 | Anesthesiology Progress Note ---
Date of Service July 01, 2018 Anesthesia Post Procedure Vital Signs Vital Signs: Temp Pulse Pulse Pulse Pulse Resp BP 07/01/18 06:53 36.7 C 61 18 07/01/18 04:07 36.7 C 64 14 06/30/18 23:03 36.9 C 66 18 06/30/18 22:52 36.7 C 62 14 06/30/18 20:30 36.6 C 67 16 06/30/18 19:03 36.4 C L 68 16 06/30/18 17:31 36.4 C L 61 18 06/30/18 16:58 36.3 C L 60 60 18 06/30/18 16:49 36.4 C L 63 20 06/30/18 16:11 36.3 C L 06/30/18 16:10 61 15 06/30/18 16:06 58 L 15 117/64 06/30/18 16:05 59 L 14 06/30/18 16:01 58 L 14 115/68 06/30/18 16:00 60 12 06/30/18 15:56 58 L 14 107/64 06/30/18 15:55 59 L 16 06/30/18 15:51 61 14 123/66 06/30/18 15:50 65 19 06/30/18 15:46 61 13 111/61 06/30/18 15:45 61 14 06/30/18 15:41 63 12 121/89 06/30/18 15:40 64 23 06/30/18 15:36 61 13 123/64 06/30/18 15:35 62 14 06/30/18 15:31 63 14 126/62 06/30/18 15:30 63 14 06/30/18 15:26 65 18 121/75 06/30/18 15:25 68 15 06/30/18 15:21 36.5 C 74 70 14 118/70 06/30/18 12:05 36.6 C 75 20 BP BP Pulse Ox 07/01/18 06:53 106/69 96 07/01/18 04:07 110/65 95 06/30/18 23:03 96/61 L 95 06/30/18 22:52 99/64 L 95 06/30/18 20:30 117/76 98 06/30/18 19:03 138/82 98 06/30/18 17:31 126/79 99 06/30/18 16:58 120/75 99 06/30/18 16:49 112/69 06/30/18 16:11 99 06/30/18 16:10 99 06/30/18 16:06 100 06/30/18 16:05 99 06/30/18 16:01 99 06/30/18 16:00 100 06/30/18 15:56 99 06/30/18 15:55 99 06/30/18 15:51 100 06/30/18 15:50 100 06/30/18 15:46 99 06/30/18 15:45 97 06/30/18 15:41 100 06/30/18 15:40 99 06/30/18 15:36 97 06/30/18 15:35 95 06/30/18 15:31 94 06/30/18 15:30 93 06/30/18 15:26 98 06/30/18 15:25 98 06/30/18 15:21 118/70 95 06/30/18 12:05 161/89 H 96 Pain Intensity Right Hip: Pain Intensity: 0 Transfer of Care Handoff Completed per policy Notes Mental Status: alert / awake / arousable Patient Amnestic to Procedure: Yes Nausea / Vomiting: adequately controlled Pain: adequately controlled Airway Patency, RR, SpO2: stable & adequate BP & HR: stable & adequate Neuraxial Anesthesia: was administered and sensory block is resolving Anesthetic Complications: no major complications apparent Notes: POD #1. Doing well. Has been OOB and tolerating PO well. No complaints. VSS
[2018-07-01] MEDS: DOCUSATE SODIUM 100 MG CAP PO SCH (08:54)
[2018-07-01] MEDS: ASPIRIN 81 MG ECTAB PO SCH (08:55)
[2018-07-01] MEDS ORDERED: MULTIVITAMIN TAB PO SCH (09:00)
[2018-07-01] MEDS ORDERED: VALACYCLOVIR HCL 500 MG TABLET PO SCH (09:00)
[2018-07-01] MEDS ORDERED: CALCIUM 600MG + VIT D 400 IU TAB PO SCH (09:00)
[2018-07-01] MEDS ORDERED: TRIAMTERENE/HCTZ 37.5/25MG CAP PO SCH (09:00)
[2018-07-01] MEDS ORDERED: LISINOPRIL 40 MG TAB PO SCH (09:00)
[2018-07-01] MEDS: INSULIN ASPART 100 UNITS/ML 3 ML PEN SC SCH (09:01)
--- NOTE | 2018-07-01 09:45 | Pharmacy Report ---
Glycemic Control Consultation - Date of Service July 01, 2018 - Scope Scope: Glycemic Pharmacist consulted by Dr Hsu on 06/30/18 for glycemic control and to write orders per [facility] inpatient glycemic control protocol - Objective Weight: 90.4 kg Accuchecks BSG (last 24hrs): 06/30/18 06/30/18 06/30/18 11:56 17:47 20:45 Glucose POC Glucose 117 H 133 H 162 H 07/01/18 07/01/18 06:45 08:02 Glucose 115 H POC Glucose 118 H Laboratory Data (last 24hrs): 07/01/18 07/01/18 06:45 07:45 Potassium 4.0 Carbon Dioxide 26 Anion Gap 7.0 Creatinine 1.27 H Est Cr Clr Drug Dosing 37.4 HbA1c: 6.0 % (4.5-5.6) H 07/01/18 06:45 - Recent Pertinent Medications Outpatient Anti-diabetic Regimen: * Metformin 500mg BIDM * A1c = 6.1 % 07/01/18 - Assessment & Plan Assessment & Plan: ASSESSMENT: * Ms. Walsh is POD: 1 s/p R total hip arthroplasty. Outpt glycemic management is well controlled as evidenced by her A1C 6.0%. PO intake remains stable. No steroids administered rekha-operatively. PLAN FOR INPATIENT GLYCEMIC CONTROL: * Holding outpatient oral diabetes medications * Basal insulin * none indicated at this juncture * Bolus insulin * NovoLog per scale ACHS or Q6hrs while NPO * Goal Range: Low 110 mg/dL - High 150 mg/dL * Correction Factor: 40 mg/dL/unit * Nutritional / Prandial insulin per carb ratio of 1 unit per 14 grams CHO consumed * Please note that the plan above was derived based on current level of insulin resistance and hospital stress. These recommendations are appropriate for inpatient admission only. Plan of care upon discharge will need to be reassessed to avoid potential outpatient hypo/hyperglycemia. Thank you.
[2018-07-03] MEDS ORDERED: LEVOTHYROXINE SODIUM 25 MCG TABLET PO SCH (06:30)
== END 2018-07-01 12:09 | disposition home or self-care (01) | DRG 470 ==
LOC: ASU 11:29 → 3E 15:26

== ENCOUNTER 2023-08-04 11:08 | Observation (INO) ==
--- NOTE | 2023-07-26 09:02 | Anesthesiology Consultation ---
Date of Service July 26, 2023 Assessment & Plan (1) Encounter for pre-operative examination: Chart Review Chart Review: Acceptable Risk for Surgery and Patient NOT seen in Pre Admission Testing Consults Requested none Additional Notes Elderly patient with multiple comorbidities including difficult intubation, patient not candidate for surgical center, to be done at [facility] Will need updated EKG History Surgery Operation Date: 08/11/23 12:35 Proposed Procedures p Right Open Trochanteric Bursectomy(Right) - Salo Cartagena, Height/Weight Height: 5 ft Weight: 83.37 kg Allergies Allergy/AdvReac Type Severity Reaction Status Date / Time cephalexin Allergy Severe RASH Verified 07/25/23 10:12 Penicillins Allergy Severe RASH Verified 07/25/23 10:12 adhesive Allergy Rash Verified 07/25/23 10:12 Medications Home Medications Medication Instructions Recorded Confirmed Last Taken Lactobacillus acidophilus 10 1 cap PO QAM 11/24/17 07/25/23 06/26/23 08:00 billion cell capsule (Probiotic) calcium carbonate (Tums) 200 mg PO UD PRN Indigestion 11/24/17 07/25/23 12/07/17 calcium carbonate 600 mg-vitamin 1 tab PO BID 11/24/17 07/25/23 06/26/23 19:00 D3 10 mcg (400 unit) tablet (Calcium 600 + D(3)) dextran 70-hypromellose (PF) 0.1 1 drp ophthalmic (eye) HS PRN Dry 11/24/17 07/25/23 06/27/23 06:00 %-0.3 % eye drops in a dropperette Eyes (Artificial Tears (PF)) multivitamin 1 tab PO QPM 11/24/17 07/25/23 12/07/17 omega 8-kgy-uvp-fish oil 1,000 mg 1 cap PO BID 11/24/17 07/25/23 06/26/23 19:00 (120 mg-180 mg) capsule (Fish Oil) acetaminophen 325 mg tablet 325 mg PO Q6H PRN Pain 10/03/18 07/25/23 Unknown sennosides 8.6 mg-docusate sodium 1 tab PO DAILY PRN Constipation 05/07/19 07/25/23 Unknown 50 mg tablet aspirin 81 mg tablet,delayed 81 mg PO HS 09/11/20 07/25/23 06/26/23 20:00 release (Ecotrin Low Strength) prednisolone acetate (PF) 1 % eye 1 drp ophthalmic (eye) QAM 09/11/20 07/25/23 06/27/23 06:00 drops,suspension vit C 250 mg-vit E 90 mg-zinc 40 1 tab PO BID #60 caps 04/20/21 07/25/23 06/26/23 19:00 mg-copper 1 [id number] capsule (PreserVision AREDS-2) Spacer for Inhaler #1 ea 08/20/21 07/25/23 Unknown compr.stocking,knee,long,large #12 ea 04/26/22 07/25/23 Unknown metformin 500 mg tablet 500 mg PO BID #200 tabs 10/27/22 07/25/23 06/26/23 19:00 dorzolamide 22.3 mg-timolol 6.8 1 drp ophthalmic (eye) BID 11/15/22 07/25/23 06/27/23 06:00 mg/mL eye drops hydrocortisone 1 % topical cream 1 applic topical BID PRN skin 11/15/22 07/25/23 Unknown (Cortisone (hydrocortisone)) irritation in ear #28.35 grams acyclovir 400 mg tablet 400 mg PO BID 06/13/23 07/25/23 06/26/23 19:00 triamterene 37.5 1 tab PO QAM #90 tabs 07/13/23 07/25/23 Unknown mg-hydrochlorothiazide 25 mg tablet clindamycin HCl 300 mg capsule 300 mg PO UD 07/25/23 07/25/23 Unknown levothyroxine 25 mcg tablet 25 mcg PO UD 07/25/23 07/25/23 Unknown losartan 50 mg tablet 50 mg PO QAM 07/25/23 07/25/23 Unknown metronidazole 1 % topical gel 1 applic topical DAILY PRN Skin 07/25/23 07/25/23 Unknown Irritation potassium chloride 10 mEq 10 meq PO BID 07/25/23 07/25/23 Unknown capsule,extended release simvastatin 40 mg tablet 40 mg PO HS 07/25/23 07/25/23 Unknown triamcinolone acetonide 0.1 % 1 applic topical BID PRN Skin 07/25/23 07/25/23 Unknown topical ointment Irritation Past Medical History Medical History Urinary incontinence Dependent edema wears compression stockings regularly Allergic rhinitis Glaucoma (increased eye pressure) Prediabetes metformin daily History of skin cancer removed from hand Difficult airway for intubation "small airway" Osteoarthritis GERD (gastroesophageal reflux disease) Hypothyroidism Shingles hx right eye, reason for valtrex Arrhythmia MANY YEARS AGO (NO CURRENT PROBLEM) - [place]IVED [place], COULD NOT PROVIDE SPECIFICS - DOES NOT FOLLOW W/ CARDIO Hypertension Hyperlipidemia Past Family History Family History Father Family history of diabetes mellitus Cardiac disorder Hx of CABG Environmental allergies Myocardial infarction Diabetes Aunt Breast cancer Mother Macular degeneration GERD (gastroesophageal reflux disease) Osteoarthritis FH: deafness or hearing loss Sister Breast cancer Grandmother (Paternal) Stroke Denies family history of Ovarian cancer Prostate cancer Crohn's disease Bleeding disorder Colorectal cancer Inflammatory bowel disease Past Surgical History Surgical History History of esophagogastroduodenoscopy (EGD) "having some abdominal pain and random bouts of vomiting; no findings on recent EGD" Status post surgical removal of malignant neoplasm of skin History of hip replacement, 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 Status post trigger finger release Right 3rd and 4th Fingers History of bilateral tubal ligation 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 - Glidescope #3, ETT #7.0, Oral HiLo, Good view with glidescope, Attempt x2 History of colonoscopy History of cholecystectomy 09/22/15 - Glidescope #4, ETT #7.5, HiLo Oral, Grade 2 View History of tooth extraction History of cataract surgery right eye History of tonsillectomy Social History Smoking Status: Never smoker Do You Dip or Chew Tobacco: No Hx Alcohol Use: No Hx Substance Use: No substance use type: does not use
[2023-08-04] MEDS ORDERED: PROPOFOL IV EMULSION 10 MG/ML 20 ML VIAL IV ONE (11:31)
[2023-08-04] MEDS ORDERED: ROCURONIUM BROMIDE 10 MG/ML 5 ML VIAL IV ONE (11:31)
[2023-08-04] MEDS ORDERED: DEXAMETHASONE SOD INJ 4 MG/ML VIAL ONE (11:31)
[2023-08-04] MEDS ORDERED: LIDOCAINE 2% 2 ML VIAL/AMP(20MG/ML) INFIL ONE (11:31)
[2023-08-04] MEDS ORDERED: ONDANSETRON INJ 2 MG/ML 2 ML VIAL ONE (11:31)
[2023-08-04] MEDS ORDERED: fentaNYL citrate PF 100 MCG/2 ML VIAL ONE (11:41)
[2023-08-04] MEDS ORDERED: ePHEDrine sulfate 50 MG/ML AMP IV PRN (11:50)
[2023-08-04] MEDS ORDERED: fentaNYL citrate PF 100 MCG/2 ML VIAL IV PRN (11:50)
[2023-08-04] MEDS ORDERED: ONDANSETRON INJ 2 MG/ML 2 ML VIAL IV PRN ×2 (11:50→13:18)
[2023-08-04] MEDS: LR 15ML/HR IV SCH (11:50)
[2023-08-04] MEDS ORDERED: ATROPINE SULFATE 0.1 MG/ML 10ML SYR IV PRN (11:50)
[2023-08-04] MEDS: LR 60ML/HR IV SCH (11:51)
--- NOTE | 2023-08-04 12:24 | History & Physical Bridge Note ---
Date of Service August 04, 2023 History & Physical Bridge Note I have examined the patient, reviewed the History & Physical and in the interval since the performance of the History & Physical I have noted the following changes of clinical significance: no changes noted
[2023-08-04] MEDS: ceFAZolin 2000MG 2,000 MG/15 ML SYR IV SCH (12:30)
[2023-08-04] MEDS ORDERED: GLYCOPYRROLATE 0.2 MG/ML VIAL ONE (13:03)
[2023-08-04] MEDS ORDERED: SUGAMMADEX SODIUM 200 MG/2 ML VIAL IV ONE (13:09)
[2023-08-04] MEDS: BUPIVACAINE/EPINEPHRINE 0.25% 1:200,000 30 ML VIAL ONE (13:11)
--- NOTE | 2023-08-04 13:15 | Operative Report ---
PG Post Operative Report Pre & Post Diagnosis Operation Date: 08/04/23 12:45 Pre-Op Diagnosis: Right Chronic Trochanteric Bursitis Post-Op Diagnosis: Right Chronic Trochanteric Bursitis I identified the patient and participated in the time-out.: Yes Procedure Operation Date: 08/04/23 12:45 Actual Procedures p Right Open Trochanteric Bursectomy(Right) - Salo Cartagena DO Surgeon Salo Cartagena DO Grain Unloader Salo Hsu PA-C Estimated Blood Loss 5 Findings Consistent with Post-Op Diagnosis Specimens None Description of Procedure On August 04, 2023 Becky arrived at [facility] for the above procedure. She was seen in the preoperative holding area and the operative extremity was identified and signed. She was given a preoperative antibiotic. She was taken back the operative room and laid on table supine position. She was put under general anesthesia. She was then put into the lateral decubitus position. The right hip was then prepped and draped in sterile fashion. A timeout was done. The patient and the operative extremity was properly identified. A longitudinal incision was made directly over the greater trochanter. Dissection was taken down through the fascia. The IT band was then exposed. The IT band was then released with a 10 cm longitudinal incision. The IT band was scarred to the greater trochanter. Once the IT band was freed from the greater trochanter bursa was then excised. There was some very thickened and inflamed bursa. Once the bursa was excised the abductors were inspected and there was no evidence of tear. The hip was brought through a full range of motion and felt to be stable. The wound was then irrigated. The deep fat layer was closed with #0 Vicryl suture. Skin was closed with 2-0 Vicryl and helen. The surrounding soft tissues were then injected with Marcaine. She was then placed in a soft dressing. She was then extubated and transferred to [facility]. She was taken to the postanesthesia care unit in stable condition. She tolerated the procedure well. Salo Hsu PA-C, was present for the entire procedure. He was critical for patient positioning, prepping, draping, retraction exposure, wound closure and application of sterile dressing. I attest to the content of the Intraoperative Record and any orders documented therein. Any exceptions are noted below.
[2023-08-04] MEDS ORDERED: oxyCODONE/ACETAMINOPHEN 5mg/325mg TAB PO PRN (13:18)
[2023-08-04] MEDS: RACEPINEPHRINE 2.25% NEBU SOLN 0.5 ML VIAL INH PRN (14:14)
--- NOTE | 2023-08-04 14:40 | Anesthesiology Progress Note ---
Date of Service August 04, 2023 Anesthesia Post Procedure Vital Signs Vital Signs: Temp Pulse Resp BP Pulse Ox O2 Del Method O2 Flow Rate 08/04/23 14:14 72 16 100 Oxymask 4 08/04/23 14:10 71 20 164/85 H 100 Oxymask 4 08/04/23 14:00 77 16 156/93 H 100 Oxymask 4 08/04/23 13:50 81 16 165/100 H 100 Oxymask 8 08/04/23 13:40 85 22 163/100 H 100 Oxymask 10 08/04/23 13:30 93 H 28 H 172/97 H 100 Oxymask 10 08/04/23 13:25 36.5 C 92 H 20 177/97 H 100 Oxymask 10 08/04/23 11:35 36.7 C 63 16 157/82 H 96 Room Air Transfer of Care Handoff Completed per policy Notes Mental Status: alert / awake / arousable and participated in evaluation Patient Amnestic to Procedure: Yes Nausea / Vomiting: adequately controlled Pain: adequately controlled Airway Patency, RR, SpO2: see Notes below BP & HR: stable & adequate Hydration State: stable & adequate Anesthetic Complications: see Notes below and Pt Satisfied with anesthetic care Notes: Patient was a known difficult airway previously. On preop exam, patient has a thick neck and known thyroid enlargement. In OR, patient was challenging to ventilate patient as it required an oral airway and two person mask ventilation. Oral airway caused some lower lip trauma and small abrasion on the outside of her lip. Lip trauma was treated by placing phenylephrine on sterile gauze and held to lip to decrease swelling. In OR, DLx1 with MAC blade by CARTON INSPECTOR but she was unable to successfully pass the ETT. Glidescope was present at bedside and she was successfully intubated on first attempt with glidescope but it did require some ETT manipulation to pass through ETT. Patient suctioned and had scant blood after ETT was secured in place. She did receive 8mg IV decadron in OR as we routinely do this for nausea prophylaxis. The patient did receive Ancef per surgeon order as her cephalexin allergy was mild rash. Case was uneventful and patient was reversed and brought to recovery room after extubation. I was called by PACU nurse and CARTON INSPECTOR as patient had redness under her chin, raspy voice and noisy breathing. Patient had SFM oxygen as is routine after surgery in a patient recovering from anesthesia. Upon examining the patient, she was sitting upright and had stable vital signs. She did have some upper airway sounds with breathing but lungs sounds were clear (no wheezing). She denied significant shortness of breath but had sore throat and raspy voice was confirmed when she answered questions. She has a thick neck at baseline and known thyroid enlargement so it was difficult to determine if there was much if any swelling in her neck. It did not feel significantly hard/swollen on palpation. I did have CARTON INSPECTOR administer a total of 50mg IV benadryl. No rashes were present on her body and I saw no hives. Her lower lip was swollen where the oral airway had caused trauma. No underlying teeth trauma noted. Patient was able to swallow small amount of water. I also did administer racemic epinephrine and patient subjectively felt better and could breath easier. Voice quality improved as well. I felt it was prudent to admit the patient overnight for observation to ensure she has no respiratory distress overnight at home. Patient and her are in agreement with the plan. Surgical team made aware and wrote admit orders. I spoke with admitting hospitalist and he came and evaluated patient promptly and agreed to keep patient overnight in step down unit. I will write for continuous pulse oximetry and patient had all questions answered.
--- NOTE | 2023-08-04 14:59 | Consultation ---
Date of Consultation August 04, 2023 Assessment & Plan (1) Acute respiratory distress: Now resolved Patient is post right trochanteric bursectomy Developed mild respiratory distress following somewhat difficult intubation Patient is currently comfortable, saturating 98% on2L of oxygen through nasal canula No stridor or wheeze on exam Received a dose of dexamethasone and racemic epinephrine Will monitor her closely on tele Monitor for any respiratory distress (2) Greater trochanteric bursitis of right hip: Hx of osteoarthritis Came for elective right greater trochanteric bursectomy Pain control is under failr control post surgery Continue PRN oxycodone DVT prophylaxis tomorrow Continue SCD for now (3) Hypertension: BP is under fair control Continue home Losartan (4) Prediabetes: On Metformin at home, will hold Use insulin sliding scale if need be (5) Thyroid enlarged: On Levothyroxine at home, will continue Plan Monitor on tele overnight. History of Present Illness Requesting Physician: Maykel Cerda Reason for Consultation: Respiratory distress Attending Physician: Salo Cartagena DO History of Present Illness This an 83-year-old female with a history of prediabetes, hypothyroidism history of thyroid disease, was admitted to the hospital for an elective right open trochanteric bursectomy. Per anesthesiology, patient had a difficult intubation and had an episode of respiratory distress after. Surgery went very well but at the request of the anesthesiologist, will observe the patient overnight. Currently vital signs stable blood pressure 160/76, pulse 78 respiratory rate 16 temperature 97.7 saturating 98% on 2 L of oxygen through nasal cannula. Of note, patient received Decadron and also receiving epinephrine. When I saw her in the PACU, she did not have any stridor although her voice was hoarse. Allergies Allergy/AdvReac Type Severity Reaction Status Date / Time cephalexin Allergy Severe RASH Verified 08/04/23 11:33 Penicillins Allergy Severe RASH Verified 08/04/23 11:33 adhesive Allergy Rash Verified 08/04/23 11:33 Home Medications Medication Instructions Recorded Confirmed Type Lactobacillus acidophilus 10 1 cap PO QAM 11/24/17 08/04/23 History billion cell capsule (Probiotic) calcium carbonate (Tums) 200 mg PO UD PRN Indigestion 11/24/17 08/04/23 History calcium carbonate 600 mg-vitamin 1 tab PO BID 11/24/17 08/04/23 History D3 10 mcg (400 unit) tablet (Calcium 600 + D(3)) dextran 70-hypromellose (PF) 0.1 1 drp ophthalmic (eye) HS PRN Dry 11/24/17 08/04/23 History %-0.3 % eye drops in a dropperette Eyes (Artificial Tears (PF)) multivitamin 1 tab PO QPM 11/24/17 08/04/23 History omega 2-lht-zcj-fish oil 1,000 mg 1 cap PO BID 11/24/17 08/04/23 History (120 mg-180 mg) capsule (Fish Oil) acetaminophen 325 mg tablet 325 mg PO Q6H PRN Pain 10/03/18 08/04/23 History sennosides 8.6 mg-docusate sodium 1 tab PO DAILY PRN Constipation 05/07/19 08/04/23 History 50 mg tablet aspirin 81 mg tablet,delayed 81 mg PO HS 09/11/20 08/04/23 History release (Ecotrin Low Strength) prednisolone acetate (PF) 1 % eye 1 drp ophthalmic (eye) QAM 09/11/20 08/04/23 History drops,suspension vit C 250 mg-vit E 90 mg-zinc 40 1 tab PO BID #60 caps 04/20/21 08/04/23 Rx mg-copper 1 gy-sktxbq-figwvt capsule (PreserVision AREDS-2) Spacer for Inhaler #1 ea 08/20/21 07/25/23 Rx compr.stocking,knee,long,large #12 ea 04/26/22 07/25/23 Rx metformin 500 mg tablet 500 mg PO BID #200 tabs 10/27/22 08/04/23 Rx dorzolamide 22.3 mg-timolol 6.8 1 drp ophthalmic (eye) BID 11/15/22 08/04/23 History mg/mL eye drops hydrocortisone 1 % topical cream 1 applic topical BID PRN skin 11/15/22 08/04/23 Rx (Cortisone (hydrocortisone)) irritation in ear #28.35 grams acyclovir 400 mg tablet 400 mg PO BID 06/13/23 08/04/23 History triamterene 37.5 1 tab PO QAM #90 tabs 07/13/23 08/04/23 Rx mg-hydrochlorothiazide 25 mg tablet clindamycin HCl 300 mg capsule 300 mg PO UD 07/25/23 08/04/23 History levothyroxine 25 mcg tablet 25 mcg PO UD 07/25/23 08/04/23 History losartan 50 mg tablet 50 mg PO QAM 07/25/23 08/04/23 History metronidazole 1 % topical gel 1 applic topical DAILY PRN Skin 07/25/23 08/04/23 History Irritation potassium chloride 10 mEq 10 meq PO BID 07/25/23 08/04/23 History capsule,extended release simvastatin 40 mg tablet 40 mg PO HS 07/25/23 08/04/23 History triamcinolone acetonide 0.1 % 1 applic topical BID PRN Skin 07/25/23 08/04/23 History topical ointment Irritation oxycodone-acetaminophen 5 mg-325 1 tab PO Q6H PRN pain #30 tabs 08/04/23 Rx mg tablet (Percocet) Patient History Medical History Urinary incontinence Dependent edema wears compression stockings regularly Allergic rhinitis Glaucoma (increased eye pressure) Prediabetes metformin daily History of skin cancer removed from hand Difficult airway for intubation "small airway" Osteoarthritis GERD (gastroesophageal reflux disease) Hypothyroidism Shingles hx right eye, reason for valtrex Arrhythmia MANY YEARS AGO (NO CURRENT PROBLEM) [place], COULD NOT PROVIDE SPECIFICS - DOES NOT FOLLOW W/ CARDIO Hypertension Hyperlipidemia Surgical History History of esophagogastroduodenoscopy (EGD) "having some abdominal pain and random bouts of vomiting; no findings on recent EGD" Status post surgical removal of malignant neoplasm of skin History of hip replacement, 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 Status post trigger finger release Right 3rd and 4th Fingers History of bilateral tubal ligation 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 - Glidescope #3, ETT #7.0, Oral HiLo, Good view with glidescope, Attempt x2 History of colonoscopy History of cholecystectomy 09/22/15 - Glidescope #4, ETT #7.5, HiLo Oral, Grade 2 View History of tooth extraction History of cataract surgery right eye History of tonsillectomy Family History Father Family history of diabetes mellitus Cardiac disorder Hx of CABG Environmental allergies Myocardial infarction Diabetes Aunt Breast cancer Mother Macular degeneration GERD (gastroesophageal reflux disease) Osteoarthritis FH: deafness or hearing loss Sister Breast cancer Grandmother (Paternal) Stroke Denies family history of Ovarian cancer Prostate cancer Crohn's disease Bleeding disorder Colorectal cancer Inflammatory bowel disease Social History Smoking Status: Never smoker Second Hand Exposure: No; Do You Dip or Chew Tobacco: No; Tobacco Cessation Education Requested by Patient: No Hx Alcohol Use: No Hx Substance Use: No Preferred Language: Com[place] Communication Ability: Effective Visual Impairment: No Limitations Hearing Ability: Normal Banquet Kitchen Supervisor Required: No Beliefs That Will Affect Care: None marital status: Current Living Situation: Spouse current occupational status: retired How many Children do You have: 2 Other Information That Helps Us Care for You: No Feels Safe at Home: Yes Safety Concerns: Feels Safe At This Time Childhood Exposure to Second-Hand Smoke: No Diet: regular caffeine: Yes during the past year weight has: remained stable Dental Care, Regularly: Yes Physical Activity Frequency: Does not Exercise Seatbelt Use: always Sunscreen Use: Yes Do you think of yourself as: straight/heterosexual Assistive Devices: Glasses Review of Systems Review of Systems: All systems reviewed are negative, apart from the ones contained in the history. Physical Exam Physical Exam: The patient is awake, alert and oriented 3, well developed and well nourished, normocephalic and atraumatic, lying in bed and in no acute distress. HEENT--PERRL, EOMI, mucous membranes and oropharynx mildly dry Neck--supple. No JVD. No bruits. Thyroid normal, trachea midline, no adenopathy. Heart--normal S1 and S2. No murmurs, rubs or gallops. Lungs--clear bilaterally, no respiratory distress, no accessory muscle use. Abdomen--normal bowel sounds and soft. Extremities--no cyanosis or clubbing. No edema. Dermatologic--normal skin turgor, normal color, no abnormal lymph nodes, no rash. Neurologic--cranial nerves II through XII grossly intact. Rheumatologic--normal range of motion. Psychiatric--normal affect. Results & Data Vital Signs (Past 12 Hours) Vital Signs Temp Pulse Resp BP Pulse Ox O2 Del Method O2 Flow Rate 08/04/23 14:40 78 16 163/76 H 98 Nasal Cannula 2 08/04/23 14:30 71 20 142/82 H 100 Nasal Cannula 2 08/04/23 14:20 73 20 161/81 H 100 Oxymask 4 08/04/23 14:14 72 16 100 Oxymask 4 08/04/23 14:10 71 20 164/85 H 100 Oxymask 4 08/04/23 14:00 77 16 156/93 H 100 Oxymask 4 08/04/23 13:50 81 16 165/100 H 100 Oxymask 8 08/04/23 13:40 85 22 163/100 H 100 Oxymask 10 08/04/23 13:30 93 H 28 H 172/97 H 100 Oxymask 10 08/04/23 13:25 97.7 F 92 H 20 177/97 H 100 Oxymask 10 08/04/23 11:35 98.1 F 63 16 157/82 H 96 Room Air
[2023-08-04] MEDS ORDERED: TRIAMCINOLONE ACET 0.1% OINT 15 GM TUBE TOP PRN (15:47)
[2023-08-04] MEDS ORDERED: DOCUSATE SODIUM/SENNA 50/8.6MG TAB PO PRN (15:47)
[2023-08-04] MEDS ORDERED: oxyCODONE HCL IR 5 MG TAB (IMMEDIATE RELEASE) PO PRN (15:47)
[2023-08-04] MEDS ORDERED: ARTIFICIAL TEARS OP PRN (15:55)
[2023-08-04] MEDS ORDERED: HYDROCORTISONE 1% CRM 30 GM TUBE EXT PRN (15:56)
[2023-08-04] MEDS ORDERED: metroNIDAZOLE 0.75% TOPICAL GEL 45 GM TUBE TOP PRN (15:57)
[2023-08-04] MEDS: metFORMIN HCL 500 MG TAB PO SCH (17:15)
[2023-08-04] MEDS: DORZOLAMIDE/TIMOLOL 22.3/6.8MG/ML 10 ML BTL OP SCH (20:21)
[2023-08-04] MEDS: ASPIRIN 81 MG ECTAB PO SCH (20:23)
[2023-08-04] MEDS: SIMVASTATIN 40 MG TAB PO SCH (20:23)
[2023-08-04] MEDS: ACYCLOVIR 400 MG TAB PO SCH (20:23)
[2023-08-04] MEDS: POTASSIUM CHLORIDE 10 MEQ TABCR PO SCH (20:24)
[2023-08-04] MEDS: CEROVITE ADV FORMULA TAB PO SCH (20:24)
[2023-08-04] MEDS: ACETAMINOPHEN 500 MG TAB PO PRN (20:30)
[2023-08-05] MEDS: LEVOTHYROXINE SODIUM 25 MCG TABLET PO SCH (05:50)
[2023-08-05] MEDS: prednisoLONE acetate 1% OP SUSP 5 ML BTL OP SCH (08:05)
[2023-08-05] MEDS: LOSARTAN POTASSIUM 50 MG TAB PO SCH (08:06)
[2023-08-05] MEDS: TRIAMTERENE/HCTZ 37.5/25MG TAB PO SCH (08:06)
[2023-08-05 08:17] LABS: Hemoglobin 12.4 g/dl (12.0-16.0); Mean Corpuscular Hemoglobin 33.4 pg (25.0-34.0); Mean Corpuscular Hgb Conc 34.4 g/dL (32.0-36.0); Mean Platelet Volume 10.2 fL (9.4-12.4); Platelet Count 201 K/uL (130-400); RDW Coefficient of Variation 12.6 % (11.5-14.5); RDW Standard Deviation 44.8 fL (36.4-46.3); Red Blood Count 3.71 M/uL (4.20-5.40); White Blood Count 11.89 K/ul (4.8-10.8)
[2023-08-05 08:31] LABS: BUN Creatinine Ratio 23.5 (10-20); Calcium 9.1 mg/dl (8.6-10.3); Creatinine Clr Calc Pharmacy 49.6 ml/min; Est GFR (African American) 73.4 ml/min; Est GFR (Non-African American) 63.4 ml/min; Potassium 3.8 mmol/L (3.5-5.1)
--- NOTE | 2023-08-05 13:38 | Hospitalist Progress Note ---
Date of Service August 05, 2023 Assessment & Plan (1) Acute respiratory distress: Plan: Now resolved Patient is post right trochanteric bursectomy Developed mild respiratory distress following somewhat difficult intubation Patient is currently comfortable, saturating 98% on2L of oxygen through nasal canula No stridor or wheeze on exam Received a dose of dexamethasone and racemic epinephrine Will monitor her closely on tele Monitor for any respiratory distress (2) Greater trochanteric bursitis of right hip: Plan: Hx of osteoarthritis Came for elective right greater trochanteric bursectomy Pain control is under failr control post surgery Continue PRN oxycodone DVT prophylaxis tomorrow Continue SCD for now (3) Hypertension: Plan: BP is under fair control Continue home Losartan (4) Prediabetes: Plan: On Metformin at home, will hold Use insulin sliding scale if need be (5) Thyroid enlarged: Plan: On Levothyroxine at home, will continue Plan Discharge plans per Ortho Admission and Anticipated Discharge Date Admission Date: August 04, 2023 Subjective Patient seen and examined, no longer in respiratory distress. Review of Systems Review of Systems: All systems reviewed are negative, apart from the ones contained in the history. Physical Exam Physical Exam: The patient is awake, alert and oriented 3, well developed and well nourished, normocephalic and atraumatic, lying in bed and in no acute distress. HEENT--PERRL, EOMI, mucous membranes and oropharynx mildly dry Neck--supple. No JVD. No bruits. Thyroid normal, trachea midline, no adenopathy. Heart--normal S1 and S2. No murmurs, rubs or gallops. Lungs--clear bilaterally, no respiratory distress, no accessory muscle use. Abdomen--normal bowel sounds and soft. Extremities--no cyanosis or clubbing. No edema. Dermatologic--normal skin turgor, normal color, no abnormal lymph nodes, no rash. Neurologic--cranial nerves II through XII grossly intact. Rheumatologic--normal range of motion. Psychiatric--normal affect. Results & Data Results & Data Vital Signs (Past 12 Hours) Vital Signs Temp Pulse Pulse Pulse Resp BP BP 08/05/23 10:31 97.3 F L 77 69 19 161/90 H 140/82 08/05/23 07:50 97.3 F L 69 19 140/82 08/05/23 06:27 59 L 06/21/24 03:09 98.6 F 71 18 125/75 08/05/23 02:06 69 Pulse Ox O2 Del Method O2 Flow Rate 08/05/23 10:31 96 08/05/23 07:50 96 Room Air 08/05/23 06:27 08/05/23 03:09 98 Nasal Cannula 2.0 08/05/23 02:06 PG Care Time/CCT Total # of Minutes Spent Total Time Spent with Patient: Total time spent is greater than 50% in coordination of care (as documented) at patient's floor/unit and/or counseling patient: Coding Level of Care Code 35440 SUB INP/OBS CARE 2/35MIN Diagnoses Acute respiratory distress R06.03 Greater trochanteric bursitis of right hip M70.61 Hypertension I10 Prediabetes R73.03 Thyroid enlarged E04.9 Time Spent (min) 35
== END 2023-08-05 11:08 | disposition home or self-care (01) | DRG 989 ==
LOC: ASU 11:08 → INTOOBSV 14:39 → 2E 14:39